=== PATIENT | female | born 1945 | race Hispanic/Latino ===

== ENCOUNTER 2017-01-21 09:33 | Inpatient (IN) | payer MEDICARE ==
[2017-01-21 09:51] VITALS: BMI 40.4
[2017-01-21] MEDS ORDERED: Sodium Chloride 0.9% 1,000 ML IV STA (10:14)
[2017-01-21] MEDS ORDERED: Morphine 2 mg/ml ISec IVP STA (10:14)
[2017-01-21 10:25] LABS: ADD MANUAL DIFF? NO
[2017-01-21 10:27] LABS: VENOUS BLOOD GAS BASE EXCESS -0.5 mmol/L (0.0-2.0)
[2017-01-21 10:32] LABS: BASO # 0.02 K/mm3 (0.0-2.0); BASO % 0.2 % (0.0-3.0); EOS % 0.3 % (1.5-5.0); GRAN # 9.48 (1.4-6.5); GRAN % 75.6 % (50.0-68.0); HEMATOCRIT 44.6 % (36.0-48.0); LYMPH # 2.1 (1.2-3.4); LYMPH % 16.4 % (22.0-35.0); MEAN CELL VOLUME 87.5 fL (80.0-105.0); MEAN CORPUSCULAR HEMOGLOBIN 30.4 pg (25.0-35.0); MEAN CORPUSCULAR HGB CONC 34.8 g/dl (31.0-37.0); MEAN PLATELET VOLUME 10.8 fl (7.0-11.0); MONO # 0.9 (0.1-0.6); MONO % 7.5 % (1.0-6.0); PLATELET COUNT 339 10^3/uL (120.0-450.0); RED CELL DISTRIBUTION WIDTH 13.1 % (11.5-14.5); WHITE BLOOD COUNT 12.5 10^3/ul (4.5-11.0)
[2017-01-21 10:37] LABS: ALB/GLOB RATIO 1.1 (1.1-1.8); ALKALINE PHOSPHATASE 69 U/L (38-133); ALT/SGPT 25 U/L (7-56); AST/SGOT 28 U/L (15-39); BLOOD UREA NITROGEN 20 mg/dL (7-21); CALCIUM 9.6 mg/dL (8.4-10.5); CARBON DIOXIDE 22 mmol/L (21-33); CHLORIDE 94 mmol/L (98-107); GFR AFRICAN-AMERICAN > 60; GLUCOSE,RANDOM 206 mg/dL (70-110); LIPASE 36 U/L (23-300); POTASSIUM 3.7 mmol/L (3.6-5.0); SODIUM 134 mmol/L (132-148); TOTAL PROTEIN 7.8 g/dL (5.8-8.3)
[2017-01-21] MEDS ORDERED: Iohexol 240 (50 ml) ONE (10:37)
[2017-01-21 10:38] LABS: INR 1.07 (0.93-1.08); PARTIAL THROMBOPLASTIN TIME 31.2 Seconds (23.7-30.8)
[2017-01-21] MEDS ORDERED: Iohexol 350 MG/100 ML VIAL ONE (10:38)
--- NOTE | 2017-01-21 11:02 | ED PDOC ---
Arrival/HPI - General Chief Complaint: Abdominal Pain Time Seen by Provider: 01/21/17 10:06 Historian: Patient - History of Present Illness Narrative History of Present Illness (Text): 01/21/17 10:10 Salima Sanchez is a 71 year old female, whose past medical history includes hypertension, diabetes, and diverticulitis, who presents to the emergency department complaining of abdominal pain and chronic back pain that radiates to her abdomen x 3 days Patient states that she was dry-heaving yesterday and felt abdominal pain. She noticed abdominal hernia would not go down and redness to her belly. Patient's last bowel movement was four days ago. Patient denies dry- heaving since, any vomiting, any fever, or any other complaint at this time. Chronic back pain has been stable she states and just hurts when she moves. No incontinence or saddle anesthesia. PMD: Dr. Pena Time/Duration: < week Symptom Onset: Gradual Symptom Course: Worsening Severity Level: Mild Activities at Onset: Light Context: Home Past Medical History - Provider Review Nursing Documentation Reviewed: Yes - Cardiac Hx Hypertension: Yes - Endocrine/Metabolic Hx Diabetes Mellitus Type 2: Yes - Musculoskeletal/Rheumatological Other/Comment: Radiculopathy - Psychiatric Hx Substance Use: No - Surgical History Hx Section: Yes Family/Social History - Physician Review Nursing Documentation Reviewed: Yes Family/Social History: No Known Family HX Smoking Status: Former Smoker Hx Alcohol Use: No Hx Substance Use: No Allergies/Home Meds Allergies/Adverse Reactions: Allergies amlodipine besylate [From [facility]] Adverse Reaction (Verified 01/21/17 09:51) ANGIOEDEMA Home Medications: Home Meds Medication Instructions Recorded Confirmed Aspirin [Ecotrin] 81 mg PO DAILY 01/21/17 01/21/17 Krill Oil [Krill Oil] 500 mg PO DAILY 01/21/17 01/21/17 Multivit-Min/Iron/Folic/Lutein 1 tab PO DAILY 01/21/17 01/21/17 [Centrum Silver Women Tablet] Simvastatin [Simvastatin] 10 mg PO DAILY 01/21/17 01/21/17 Sitagliptin Phos/Metformin HCl 1 tab PO DAILY 01/21/17 01/21/17 [Janumet 50-500 mg Tablet] Review of Systems - Physician Review All systems were reviewed & negative as marked: Yes - Review of Systems Constitutional: absent: Fevers, Night Sweats Eyes: absent: Vision Changes ENT: absent: Hearing Changes Respiratory: absent: SOB, Cough Cardiovascular: absent: Chest Pain Gastrointestinal: Abdominal Pain, Constipation, Nausea. absent: Vomiting Genitourinary Female: absent: Urine Output Changes Musculoskeletal: Back Pain Skin: absent: Rash Neurological: absent: Headache, Dizziness Endocrine: absent: Diaphoresis Hemo/Lymphatic: absent: Easy Bleeding Psychiatric: absent: Depression Physical Exam Vital Signs Reviewed: Yes Vital Signs Temp Pulse Resp BP Pulse Ox 01/21/17 09:41 98.2 F 60 18 133/67 100 Temperature: Afebrile Blood Pressure: Normal Pulse: Regular Respiratory Rate: Normal Appearance: Positive for: Well-Appearing, Non-Toxic, Comfortable Pain Distress: None Mental Status: Positive for: Alert and Oriented X 3 - Systems Exam Head: Present: Atraumatic, Normocephalic Pupils: Present: PERRL Extroacular Muscles: Present: EOMI Conjunctiva: Present: Normal Mouth: Present: Moist Mucous Membranes Neck: Present: Normal Range of Motion Respiratory/Chest: Present: Clear to Auscultation, Good Air Exchange. No: Respiratory Distress, Accessory Muscle Use Cardiovascular: Present: Regular Rate and Rhythm, Normal S1, S2. No: Murmurs Abdomen: Present: Tenderness, Normal Bowel Sounds, Guarding, Hernias (Ventral hernia that is palpable and tender), Other (Obese abdomen ). No: Distention Back: Present: Midline Tenderness (Diffuse lower-mid back tenderness) Upper Extremity: Present: Normal Inspection. No: Cyanosis, Edema Lower Extremity: Present: Normal Inspection. No: Edema Neurological: Present: GCS=15, CN II-XII Intact, Speech Normal Skin: Present: Warm. No: Normal Color (Red) Psychiatric: Present: Alert, Oriented x 3, Normal Insight, Normal Concentration Medical Decision Making ED Course and Treatment: 01/21/17 11:00 Impression: 71 year old female complaining of abdominal pain due to chronic back pain from three days ago that radiated to belly. Differential Diagnosis included but are not limited to: Abdominal pain, ventral hernia r/o obstruction r/o diverticulitis Plan: -- Abdomen and Pelvis CT w/ PO & IV Contrast -- VBG, Blood Culture -- Urinalysis -- Morphine, IV Fluids -- Reassess and disposition Progress Notes: 01/21/17 12:25 On arrival I placed a warm towel on abdominal wall. In trendelenburg I attempted to reduce her hernia with no success. She continues to complain of pain. I spoke to surgical forceps fabricator Dr. Sequeira who will come and evaluate patient. 01/21/17 12:27 Patient is having difficult drinking oral contrast because her stomach starts to ache and then she feels nauseous. At that time Zofran and Morphine were ordered. 01/21/17 13:[address] Morrell who patient requested as a surgeon. I discussed CT results with him and he will take her to the OR today. Dr. Sequeira resident also examined her. She is currently NPO. Her last meal was Monday. Dr. Pena made aware of admission. - Critical Care Critical Care Minutes: 30 minutes - Lab Interpretations Lab Results: 01/21/17 10:00 01/21/17 10:00 Lab Results 01/21/17 10:00: WBC 12.5 H D, RBC 5.10, Hgb 15.5, Hct 44.6, MCV 87.5, MCH 30.4, MCHC 34.8, RDW 13.1, Plt Count 339, MPV 10.8, Gran % 75.6 H, Lymph % (Auto) 16.4 L, Jack % (Auto) 7.5 H, Eos % (Auto) 0.3 L, Baso % (Auto) 0.2, Gran # 9.48 H, Lymph # 2.1, Jack # 0.9 H, Eos # 0.0, Baso # 0.02, PT 11.6, INR 1.07, APTT 31.2 H, pO2 53, VBG pH 7.40, VBG pCO2 39.0 L, VBG HCO3 24.2, VBG Total CO2 25.4 , VBG O2 Sat (Calc) 90.8 H, VBG Base Excess -0.5 L, VBG Potassium 4.0, Glucose 213 H, Lactate 2.0, FiO2 21.0, Sodium 131.0 L, Potassium 3.7, Chloride 95.0 L, Carbon Dioxide 22, Anion Gap 22 H, BUN 20, Creatinine 0.9, Est GFR ( Amer ) > 60, Est GFR (Non-Af Amer) > 60, Random Glucose 206 H, Calcium 9.6, Total Bilirubin 1.0, AST 28, ALT 25, Alkaline Phosphatase 69, Total Protein 7.8, Albumin 4.1, Globulin 3.7, Albumin/Globulin Ratio 1.1, Lipase 36, Venous Blood Potassium 4.0 I have reviewed the lab results: Yes - RAD Interpretation Radiology Orders: 01/21/17 10:13 ABD PELVIS PO & IV CONTRAST [CT] Stat 01/21/17 13:31 CHEST PORTABLE [RAD] Stat Accession No. : [id number] Patient Name / ID : ALBERTO GARCIA / [id number] Exam Date : 01/21/2017 12:29:56 ( Approved ) Study Comment : Sex / Age : F / 71Y Creator : INGRIS ROMERO MD Dictator : INGRIS ROMERO MD Tentering Machine Off Bearer : Service Station Operator : INGRIS ROMERO MD Approver2 : Report Date : 01/21/2017 13:19:55 My Comment : IMPRESSION: 1. Findings are concerning for incarcerated infraumbilical ventral hernia with high-grade mechanical obstruction in the distal small bowel obstruction. Small amount of free fluid in the abdomen. 2. Mild hepatomegaly and hepatic steatosis. Geriatric Care Manager: Radiologist - Medication Orders Current Medication Orders: Discontinued Medications Sodium Chloride (Sodium Chloride 0.9%) 1,000 mls @ 999 mls/hr IV .Q1H1M STA Stop: 01/21/17 11:14 Last Admin: 01/21/17 10:22 Dose: 999 MLS/HR eMAR Start Stop Document 01/21/17 10:22 EWO (Rec: 01/21/17 10:32 EWO [id number]) Intravenous Solution Start Date 01/21/17 Start Time 10:32 End Date 01/21/17 End time 11:32 Total Infusion Time 60 Iohexol (Omnipaque 240 (50 Ml)) Confirm Administered Dose 50 ml .ROUTE .STK-MED ONE Stop: 01/21/17 10:38 Iohexol (Omnipaque 350 100 Ml) Confirm Administered Dose 350 mg .ROUTE .STK-MED ONE Stop: 01/21/17 10:39 Morphine Sulfate (Morphine) 2 mg IVP STAT STA Stop: 01/21/17 10:15 Last Admin: 01/21/17 10:21 Dose: 2 MG MAR Pain Assessment Document 01/21/17 10:21 EWO (Rec: 01/21/17 10:21 [place] [id number]) Pain Reassessment Is this a pain reassessment? No Sleep Is patient sleeping during reassessment? No Presence of Pain Presence of Pain Yes Pain Scale Used Pain Scale Used Numeric Location Left, Right or Bilateral Left Pain Location Body Site Abdomen Description Description Constant Intensity of Pain at present 8 Pain Behavior Guarding IVP Administration Document 01/21/17 10:21 EWO (Rec: 01/21/17 10:21 [place] [id number]) Charges for Administration # of IVP Administrations 1 Morphine Sulfate (Morphine) 4 mg IVP STAT STA Stop: 01/21/17 12:12 Last Admin: 01/21/17 12:22 Dose: 4 MG MAR Pain Assessment Document 01/21/17 12:22 EWO (Rec: 01/21/17 12:22 [place] [id number]) Pain Reassessment Is this a pain reassessment? Yes Sleep Is patient sleeping during reassessment? No Presence of Pain Presence of Pain Yes Pain Scale Used Pain Scale Used Numeric Location Pain Location Body Site Abdomen Description Description Intermittent Intensity of Pain at present 7 IVP Administration Document 01/21/17 12:22 EWO (Rec: 01/21/17 12:22 [place] [id number]) Charges for Administration # of IVP Administrations 1 Ondansetron HCl (Zofran Inj) Confirm Administered Dose 4 mg .ROUTE .STK-MED ONE Stop: 01/21/17 12:24 - Scribe Statement The provider has reviewed the documentation as recorded by the Bin Samuels Provider Scribe Attestation: All medical record entries made by the Scribe were at my direction and personally dictated by me. I have reviewed the chart and agree that the record accurately reflects my personal performance of the history, physical exam, medical decision making, and the department course for this patient. I have also personally directed, reviewed, and agree with the discharge instructions and disposition. Disposition/Present on Arrival - Present on Arrival Any Indicators Present on Arrival: No History of DVT/PE: No History of Uncontrolled Diabetes: No Urinary Catheter: No History of Decub. Ulcer: No History Surgical Site Infection Following: None - Disposition Have Diagnosis and Disposition been Completed?: Yes Diagnosis: Small bowel obstruction, Incarcerated ventral hernia Disposition: HOSPITALIZED Disposition Time: 13:34 Patient Plan: Admission Condition: GUARDED Referrals: PCP,NO [Primary Care Provider] - Follow up with primary
[2017-01-21] MEDS ORDERED: Morphine 4 mg/ml ISec IVP STA (12:11)
--- NOTE | 2017-01-21 13:21 | CT ---
PROCEDURE: CT Abdomen and Pelvis with contrast HISTORY: abd pain with ventral hernia r/o obs r/o diverticu COMPARISON: None. TECHNIQUE: CT scan of the abdomen and pelvis was performed after intravenous administration of contrast. Oral contrast was administered. Coronal and sagittal reformatted images were obtained. Contrast dose: 100 mL Omnipaque 350 Radiation dose: Total exam DLP = 1237.92 mGy-cm. FINDINGS: LOWER THORAX: There is linear atelectasis or scarring in the lingula and bibasilar subsegmental atelectasis. LIVER: The liver is enlarged and there is diffuse low-attenuation. No gross lesion or ductal dilatation. GALLBLADDER AND BILE DUCTS: There are no calcified gallstones. . PANCREAS: Unremarkable. No gross lesion or ductal dilatation. SPLEEN: The spleen is normal in size and there is homogeneous enhancement without focal lesion. ADRENALS: Both adrenal glands are normal in size without discrete nodule. Both KIDNEYS AND URETERS: Both kidneys are normal in size and there is homogeneous enhancement. There is no hydronephrosis. There is a 3 cm simple cyst in the right lower pole. VASCULATURE: The aorta is normal in caliber. There atherosclerotic aortic iliac calcifications. No aneurysm. BOWEL: There is moderate oozing dilatation and air-fluid levels in the proximal and mid small bowel loops leading into a large fat containing infraumbilical ventral hernia. The exiting small bowel loops and the distal small bowel loops are normal in caliber. Ileocecal junction is normal. There is significant fat stranding surrounding the hernia. There is left colonic diverticulosis without CT evidence for acute diverticulitis. APPENDIX: Normal appendix. PERITONEUM: There is small amount of free fluid in the abdomen. No free intraperitoneal air. LYMPH NODES: No enlarged lymph nodes. BLADDER: Normal in appearance. REPRODUCTIVE: The uterus is normal in size for the patient's age. No adnexal masses. BONES: No acute fracture. OTHER FINDINGS: There is a small fat containing supraumbilical ventral hernia. IMPRESSION: 1. Findings are concerning for incarcerated infraumbilical ventral hernia with high-grade mechanical obstruction in the distal small bowel obstruction. Small amount of free fluid in the abdomen. 2. Mild hepatomegaly and hepatic steatosis.
--- NOTE | 2017-01-21 14:13 | RAD ---
HISTORY: preop COMPARISON: No prior. FINDINGS: LUNGS: The lungs are clear. PLEURA: No significant pleural effusion identified, no pneumothorax apparent. CARDIOVASCULAR: Normal. OSSEOUS STRUCTURES: No significant abnormalities. VISUALIZED UPPER ABDOMEN: Normal. OTHER FINDINGS: None. IMPRESSION: No active pulmonary disease.
[2017-01-21 14:17] LABS: VENOUS BLOOD GAS BASE EXCESS -0.5 mmol/L (0.0-2.0); VENOUS BLOOD PH 7.44 (7.32-7.43)
[2017-01-21 14:28] LABS: URINE BILIRUBIN NEGATIVE (NEGATIVE); URINE BLOOD NEGATIVE (NEGATIVE); URINE GLUCOSE (UA) NEGATIVE (NEGATIVE); URINE KETONE TRACE mg/dL (NEGATIVE); URINE LEUKOCYTE ESTERASE NEGATIVE Leu/uL (NEGATIVE); URINE PROTEIN NEGATIVE mg/dL (<30 mg/dL); URINE UROBILINOGEN 0.2 E.U./dL (<1 E.U./dL)
[2017-01-21] MEDS ORDERED: metroNIDAZOLE IV 500 mg/100 ml 100 ML IVPB STA (14:33)
[2017-01-21] MEDS ORDERED: Ciprofloxacin 400mg/200ml D5W 200 ML IVPB STA (14:33)
--- NOTE | 2017-01-21 14:44 | CP.PCM.CON ---
History of Present Illness - History of Present Illness History of Present Illness: SURGERY CONSULT NOTE FOR DR. ALY 71F presents to [facility] ED with abdominal pain and ventral abdominal hernia that started on Monday. Patient states she has had this hernia since 2006 and it has been reducible until Monday. She also notes that the skin above the hernia became erythematous yesterday. Patient states she is unable to tolerate regular diet has it causes her nausea and dry heaves, but denies having a vomiting episode. Patient states she has not had a bowel movement since Monday also. She usually has one everyday. Last time she had intake was 2am 01/21/17. She states it was liquids. Patient denies fevers, chills. PMD: Dr. Pena PMH: HTN, DM, Lumbar radiculopathy, Glaucoma PSH: Tonsillectomy, D&C, Plantar fasciatomy, removal of vocal cord polyps, C-sec *2 (one midline incision, one transverse incision) Social: denies tobacco, rare alcohol intake, denies illicit drugs Allergies: [facility] Review of Systems - Constitutional Constitutional: absent: Anorexia, Chills, Fever - EENT Eyes: absent: Irritation, Itchy Eyes Ears: absent: Dizziness Nose/Mouth/Throat: absent: Nasal Congestion, Sore Throat - Cardiovascular Cardiovascular: absent: Chest Pain, Dyspnea, Lightheadedness - Respiratory Respiratory: absent: Cough, Hemoptysis, Chest Congestion - Gastrointestinal Gastrointestinal: Abdominal Pain, Constipation, Cramping, Nausea. absent: Vomiting - Genitourinary Genitourinary: absent: Difficulty Urinating, Dysuria - Musculoskeletal Musculoskeletal: Tingling (down legs) - Integumentary Integumentary: Erythema (on skin over ventral hernia) - Neurological Neurological: Headaches, Radicular Pain (lumbar radicular pain) Past Patient History - Past Social History Smoking Status: Former Smoker - CARDIAC Hx Hypertension: Yes - ENDOCRINE/METABOLIC Hx Diabetes Mellitus Type 2: Yes - MUSCULOSKELETAL/RHEUMATOLOGICAL Other/Comment: Radiculopathy - PSYCHIATRIC Hx Substance Use: No - SURGICAL HISTORY Hx Section: Yes Meds Allergies/Adverse Reactions: Allergies Allergy/AdvReac Type Severity Reaction Status Date / Time amlodipine besylate AdvReac ANGIOEDEMA Verified 01/21/17 09:51 [From Norvasc] Physical Exam - Constitutional Appears: Other (uncomfortable 2/2 pain) - Head Exam Head Exam: ATRAUMATIC - Eye Exam Eye Exam: EOMI, PERRL Pupil Exam: PERRL - ENT Exam ENT Exam: Mucous Membranes Moist - Respiratory Exam Respiratory Exam: Clear to Auscultation Bilateral, NORMAL BREATHING PATTERN - Cardiovascular Exam Cardiovascular Exam: REGULAR RHYTHM, +S1, +S2 - GI/Abdominal Exam GI & Abdominal Exam: Distended, Hernia (ventral hernia, erythema of skin ), Soft , Tenderness (tenderness greatest at site of hernia). absent: Firm, Guarding, Rebound, Rigid - Extremities Exam Extremities exam: Negative for: pedal edema, tenderness - Neurological Exam Neurological exam: Alert, Oriented x3 - Psychiatric Exam Psychiatric exam: Normal Affect, Normal Mood - Skin Skin Exam: Dry, Erythema (erythema of skin overlaying the ventral hernia), Intact, Normal Color, Warm Results - Vital Signs Recent Vital Signs: Last Vital Signs Temp 99.9 F H 01/21/17 13:00 Pulse 88 01/21/17 13:00 Resp 18 01/21/17 13:00 BP 106/78 01/21/17 13:00 Pulse Ox 96 01/21/17 13:00 - Labs Result Diagrams: 01/21/17 10:00 01/21/17 10:00 Labs: Laboratory Results - last 24 hr 01/21/17 14:00 pO2 151 H VBG pH 7.44 H VBG pCO2 34.0 L VBG HCO3 23.1 VBG Total CO2 24.1 VBG O2 Sat (Calc) 99.1 H VBG Base Excess -0.5 L VBG Potassium 4.0 Sodium 132.0 Chloride 98.0 Glucose 172 H Lactate 1.5 FiO2 21.0 Venous Blood Potassium 4.0 Assessment & Plan - Assessment and Plan (Free Text) Assessment: 71F presents with abdominal pain 2/2 Incarcerated ventral/Incisional abdominal hernia Plan: - NPO, Pain control, anti-emetic, anti-pyretics, antibiotics - NG tube placed for decompression - Serial abdominal exam - Labs, Coags/EKG/CXR/TypeScreen/Consent - Patient to go OR today for Laparoscopic/poss open hernia repair Discussed with Dr. Petros Sequeira, PGY1
[2017-01-21 14:50] LABS: URINE APPEARANCE CLEAR (CLEAR); URINE COLOR YELLOW (YELLOW)
[2017-01-21] MEDS ORDERED: HYDROmorphone 1 mg/ml ISec IVP PRN (15:02)
--- NOTE | 2017-01-21 15:11 | RAD ---
HISTORY: S/P NG TUBE COMPARISON: None FINDINGS: The nasogastric tube is coiled in the stomach. LUNGS: Lung markings are accentuated. There is no focal consolidation. PLEURA: No significant pleural effusion identified, no pneumothorax apparent. CARDIOVASCULAR: The cardiomediastinal silhouette is within normal limits. OSSEOUS STRUCTURES: No significant abnormalities. VISUALIZED UPPER ABDOMEN: Normal. OTHER FINDINGS: None. IMPRESSION: The nasogastric tube is coiled in the stomach. No active pulmonary disease. Mild pulmonary venous congestion.
[2017-01-21] MEDS ORDERED: Sodium Chloride 0.9% 1,000 ML IV SCH (15:15)
[2017-01-21] MEDS ORDERED: Bupivacaine 0.5% Inj(30mL) ONE (15:52)
[2017-01-21] MEDS ORDERED: Propofol 10 mg/ml Inj (20 ML) ONE (15:54)
[2017-01-21] MEDS ORDERED: Lidocaine 1% Inj (20ml) ONE (15:54)
[2017-01-21] MEDS ORDERED: Etomidate 20 mg/10ml Inj IV ONE (15:54)
[2017-01-21] MEDS ORDERED: Rocuronium 10 mg/ml (5 ml) ONE (15:54)
[2017-01-21] MEDS ORDERED: Midazolam 2 MG/2 ML VIAL ONE (15:56)
[2017-01-21] MEDS ORDERED: Succinylcholine 200 mg/10 ml Inj IV ONE (16:19)
[2017-01-21] MEDS ORDERED: Phenylephrine 10 mg/ml Inj ONE (16:31)
--- NOTE | 2017-01-21 17:21 | HP ---
,HISTORY OF PRESENT ILLNESS: A 71-year-old female with several day' history of abdominal pain, came to [facility] and was evaluated and found to have an incarcerated ventral abdominal hernia with small bowel compromise. SOCIAL HISTORY: Nonsmoker, nondrinker, nondrug user. ALLERGY HISTORY: NORVASC. HOME MEDICATIONS: Consist of Janumet 500, multivitamin, Centrum Silver, simvastatin 10 mg, Ecotrin 81 mg and Karely Oil 500 mg. PAST MEDICAL AND SURGICAL HISTORY: Includes a D and C, 2 C-sections, surgery on the feet, vocal cord polyp surgery. She has a history of peripheral neuropathy, hypertension, Rhfdv-Niquouifz-Xksbm syndrome, peripheral neuropathy and non-insulin dependent diabetes. The patient states that she has no known coronary artery disease,sleep apnea. PHYSICAL EXAMINATION: VITAL SIGNS: She was found to have temp of 98.2, pulse of 60, blood pressure 133/67, oxygen saturation was 100% on room air, respiratory rate was 18. GENERAL: She has an NG tube in place. She is alert and oriented x 3. NECK: Supple, no JVD. HEART: Is an S1, S2. ABDOMEN: Soft, diminished bowel sounds. LUNGS: Diminished breath sounds at the bases. EXTREMITIES: Show no evidence of edema. NEUROLOGIC: She is alert and oriented x 3. LABORATORY DATA: WBC is 12.5, RBC is 5.1, hemoglobin 15.5, hematocrit 44.6, platelet count is 339. PT is 11.6 with an INR of 1.07, PTT is 31.2. Venous blood gas shows a lactate of 1.5. Chemistry shows sodium 134, potassium 3.7, chloride 94, BUN is 20, creatinine is 0.9. Random blood sugar is 206, lipase is 36. LFTs are normal. Urinalysis shows clear. Chest x-ray is reported as showing clear lungs. Abdominal CAT scan of the abdomen and pelvis shows a ventral abdominal hernia with compromise of the small bowel. I was asked to see the patient after the surgeon, Dr. Morrell, had been requested. The patient will be seen by Dr. Morrell with the intent to do surgery. The patient received Dilaudid in the Emergency Room with IV fluids and she received Cipro and Flagyl. Brittany Pena MD cc: [id number] TT: 01/21/2017 17:20:51 dn [id number]
--- NOTE | 2017-01-21 18:20 | PCM.SURG1 ---
Surgeon's Initial Post Op Note - Surgeon's Notes Surgeon: Petros Machine Heel Sprayer: Fabby Pre-Operative Diagnosis: Ventral/Incisional incarcerated hernia Operative Findings: two ventral hernia defects filled with small bowel and omentum Post-Operative Diagnosis: Ventral/Incisional incarcerated hernia Operation Performed: Laparoscopic hernia repair with mesh Specimen/Specimens Removed: omentum Estimated Blood Loss: EBL {In ML}: 30 Date of Surgery/Procedure: 01/21/17 Time of Surgery/Procedure: 16:30
[2017-01-21] MEDS ORDERED: HYDROmorphone 0.5 mg/0.5 ml ISec IVP PRN (18:23)
[2017-01-21] MEDS ORDERED: Lactated Ringer's 1,000 ML IV SCH (18:30)
--- NOTE | 2017-01-21 19:21 | CON ---
DATE: 01/21/2017 The patient is a 71-year-old female who has a past medical history of ventral abdominal hernia which she has had for years, but had increasing abdominal pain days leading up to coming in today, nausea, vomiting, and had a CT scan done that showed incarcerated ventral abdominal hernia. She went for [facility] surgery by Dr. Morrell, and now seen postoperatively with no acute complications. From [facility] with anesthesia, the patient's surgery went well. Estimated blood loss less than 500 mL. No co mplications were found. Three incision ports have healed at this time. The patient was extubated ea sily without any complications. PAST MEDICAL HISTORY: Hypertension, diabetes, obstructive sleep apnea. Unclear if obstructive lung disease. Peripheral neuropathy, history of Jplnj-Vdqxcfzpl-Eelba syndrome, peripheral neuropathy. PAST SURGICAL HISTORY: Vocal cord polyp, 2 C-sections, and today's surgery. ALLERGY HISTORY: NORVASC. SOCIAL HISTORY: Was a 77-rwzi-hint smoker; quit in 2008. No alcohol, no IV drug abuse. REVIEW OF SYSTEMS: Pertinent positives: The patient complaining of abdominal pain, dry mouth. All other review of systems are negative. LABORATORY RESULTS PREOPERATIVELY: White blood cell count 12.5, hemoglobin 15, platelet count of 339 . Sodium 134, potassium 2.7, chloride 94, bicarb 22, BUN 20, creatinine 0.9. VBG: pH 7.44, INR 1.07 . PHYSICAL EXAMINATION: VITAL SIGNS: Temp 98.2, heart rate 86, blood pressure 106/78, respiratory rate is 18, and 96% on yari m air. HEENT: The pupils are equal, round, and reactive to light. Extraocular eye movements are intact. M oist mucous membranes, Mallampati 4. NECK: No JVD. LUNGS: Clear to auscultation bilaterally without any rhonchi, rales, or wheezes. CARDIOVASCULAR: S1, S2 is heard without any heaves, murmurs, or thrills. ABDOMEN: Obese, soft, tender in the area of surgery. Three surgical incision reports are closed. M ild erythema is noted. Ventral hernia is still present. GENITOURINARY: Mora is in place. EXTREMITIES: Showed no pedal edema. SKIN: Shows no rashes. NEUROLOGICALLY: The patient is alert and oriented x 3. ASSESSMENT AND PLAN: The patient is a 71-year-old female status post emergent ventral hernia repair due to incarcerated small bowel. POSTOPERATIVE CARE: At this time the patient will have pain control with Dilaudid p.r.n. The patien t started on empiric antibiotics with Flagyl. Followup surgical recommendations. Keep n.p.o. NG tu be to suction. The patient should be continued on mild hydration with D5 normal saline at 100-150 mL per hour. For diabetes, the patient will be placed on insulin sliding scale. Hold p.o. and hypoglycemics. Hypertension. The patient is currently normotensive. Would hold off on any antihypertensives at thi s time. Followup labs. Monitor electrolytes, DVT prophylaxis, heparin subQ. TOTAL CRITICAL CARE TIME: 55 minutes. Meka Colmenares M.D. cc: [id number] TT: 01/21/2017 19:21:08 Confirmation # [id number] Dictation # [id number]
[2017-01-21] MEDS: Dextrose 5%/0.9% NS 1,000 ML IV SCH (19:51)
[2017-01-21] MEDS ORDERED: HYDROmorphone 2 mg/ml ISec IVP PRN (20:59)
[2017-01-21] MEDS: HYDROmorphone 1 mg/ml ISec IVP PRN (21:26)
[2017-01-21] MEDS: metroNIDAZOLE IV 500 mg/100 ml 100 ML IVPB SCH (21:27)
[2017-01-21] MEDS: Insulin Lispro (humaLOG) MEDIUM Coverage SC SCH (21:41)
[2017-01-21] MEDS ORDERED: Ciprofloxacin 400mg/200ml D5W 200 ML IVPB SCH (22:00)
[2017-01-22] MEDS: Dextrose 5%/0.9% NS 1,000 ML IV SCH ×2 (01:40→14:03)
[2017-01-22 05:04] LABS: ADD MANUAL DIFF? NO
[2017-01-22] MEDS: metroNIDAZOLE IV 500 mg/100 ml 100 ML IVPB SCH (05:08)
[2017-01-22 05:25] LABS: ALKALINE PHOSPHATASE 52 U/L (38-133); ALT/SGPT 25 U/L (7-56); AST/SGOT 31 U/L (15-39); BASO # 0.01 K/mm3 (0.0-2.0); BASO % 0.1 % (0.0-3.0); BILIRUBIN,TOTAL 0.7 mg/dL (0.2-1.3); BLOOD UREA NITROGEN 24 mg/dL (7-21); CALCIUM 8.4 mg/dL (8.4-10.5); CARBON DIOXIDE 24 mmol/L (21-33); CHLORIDE 98 mmol/L (98-107); EOS % 0.5 % (1.5-5.0); GFR AFRICAN-AMERICAN > 60; GLUCOSE,RANDOM 255 mg/dL (70-110); GRAN # 5.78 (1.4-6.5); GRAN % 72.7 % (50.0-68.0); HEMATOCRIT 38.6 % (36.0-48.0); LYMPH # 1.5 (1.2-3.4); LYMPH % 18.4 % (22.0-35.0); MEAN CELL VOLUME 87.1 fL (80.0-105.0); MEAN CORPUSCULAR HEMOGLOBIN 29.3 pg (25.0-35.0); MEAN CORPUSCULAR HGB CONC 33.7 g/dl (31.0-37.0); MEAN PLATELET VOLUME 10.6 fl (7.0-11.0); MONO # 0.7 (0.1-0.6); MONO % 8.3 % (1.0-6.0); PLATELET COUNT 308 10^3/uL (120.0-450.0); POTASSIUM 3.5 mmol/L (3.6-5.0); RED CELL DISTRIBUTION WIDTH 13.4 % (11.5-14.5); SODIUM 134 mmol/L (132-148); TOTAL PROTEIN 6.4 g/dL (5.8-8.3)
--- NOTE | 2017-01-22 06:43 | CP.PCM.PN ---
Subjective - Date & Time of Evaluation Date of Evaluation: 01/22/17 Time of Evaluation: 06:40 - Subjective Subjective: SURGERY NOTE FOR DR. ALY 71F seen and examined at bedside. Patient states abdominal pain is improved and controlled. Denies nausea, vomiting, she is tolerating diet. Objective - Vital Signs/Intake and Output Vital Signs (last 24 hours): Temp Pulse Resp BP Pulse Ox 98.4 F 75 16 179/69 H 95 01/22/17 04:00 01/22/17 06:00 01/22/17 06:00 01/22/17 06:00 01/22/17 06:00 Intake and Output: 01/21/17 01/22/17 18:59 06:59 Intake Total 2000 Output Total 450 Balance 1550 - Medications Medications: Current Medications Acetaminophen (Tylenol 325mg Tab) 650 mg PO Q6H PRN PRN Reason: Fever >100.4 F Heparin Sodium (Porcine) (Heparin) 5,[address] PRN Reason: Protocol Hydralazine HCl (Apresoline) 10 mg IVP Q6 PRN PRN Reason: Systolic Blood Pressure Hydromorphone HCl (Dilaudid) 1 mg IVP Q3 PRN PRN Reason: Pain, moderate (4-7) Last Admin: 01/21/17 21:26 Dose: 1 mg Hydromorphone HCl (Dilaudid) 2 mg IVP Q3H PRN PRN Reason: Pain, severe (8-10) Last Admin: 01/22/17 05:07 Dose: 2 mg Metronidazole (Flagyl) 100 mls @ 100 mls/hr IVPB Q8 LANE PRN Reason: Protocol Last Admin: 01/22/17 05:08 Dose: 100 mls/hr Dextrose/Sodium Chloride (Dextrose 5%/0.9% Ns 1000 Ml) 1,000 mls @ 150 mls/hr IV .Q6H40M [facility] Last Admin: 01/22/17 01:40 Dose: 150 mls/hr Potassium Chloride (Potassium Chloride 20 Meq/100 Ml) 100 mls @ 50 mls/hr IVPB Q2H [facility] Stop: 01/22/17 10:14 Insulin Human Lispro (Humalog Med) [address] PRN Reason: Protocol Last Admin: 01/21/17 21:41 Dose: Not Given Ondansetron HCl (Zofran Inj) 4 mg IVP Q4 PRN PRN Reason: Nausea/Vomiting - Labs Labs: 01/22/17 05:00 01/22/17 05:00 PT 11.6 Seconds (9.9-11.8) 01/21/17 10:00 INR 1.07 (0.93-1.08) 01/21/17 10:00 APTT 31.2 Seconds (23.7-30.8) H 01/21/17 10:00 - Constitutional Appears: Non-toxic, No Acute Distress - Head Exam Head Exam: ATRAUMATIC - Respiratory Exam Respiratory Exam: Clear to Ausculation Bilateral, NORMAL BREATHING PATTERN - Cardiovascular Exam Cardiovascular Exam: REGULAR RHYTHM, +S1, +S2 - GI/Abdominal Exam GI & Abdominal Exam: Soft, Tenderness. absent: Distended, Firm, Guarding, Rigid , Rebound Additional comments: incisions are clean dry intact, skin erythema on site of hernia is resolving - Neurological Exam Neurological Exam: Alert, Awake - Skin Skin Exam: Dry, Intact, Normal Color, Warm Assessment and Plan - Assessment and Plan (Free Text) Assessment: 71F s/p laparoscopic ventral/incisional hernia repair POD1 Plan: - monitor vitals/labs - await bowel function - encourage ambulation/Incentive spirometer/ knee high hose stocking - NPO till noon and monitor NG tube output from now to noon Further recs discuss with Dr. Petros Sequeira, PGY1
--- NOTE | 2017-01-22 09:31 | CP.PCM.PN ---
Subjective - Date & Time of Evaluation Date of Evaluation: 01/22/17 Time of Evaluation: 08:00 - Subjective Subjective: No acute events overnight Pt refused CPAP Pain controlled NGT to suction remains BP WNL Objective - Vital Signs/Intake and Output Vital Signs (last 24 hours): Temp Pulse Resp BP Pulse Ox 98.4 F 75 16 179/69 H 95 01/22/17 04:00 01/22/17 06:00 01/22/17 06:00 01/22/17 06:00 01/22/17 06:00 Intake and Output: 01/22/17 01/22/17 06:59 18:59 Intake Total 2000 Output Total 450 Balance 1550 - Medications Medications: Current Medications Acetaminophen (Tylenol 325mg Tab) 650 mg PO Q6H PRN PRN Reason: Fever >100.4 F Heparin Sodium (Porcine) (Heparin) 5,[address] PRN Reason: Protocol Hydralazine HCl (Apresoline) 10 mg IVP Q6 PRN PRN Reason: Systolic Blood Pressure Hydromorphone HCl (Dilaudid) 1 mg IVP Q3 PRN PRN Reason: Pain, moderate (4-7) Last Admin: 01/21/17 21:26 Dose: 1 mg Hydromorphone HCl (Dilaudid) 2 mg IVP Q3H PRN PRN Reason: Pain, severe (8-10) Last Admin: 01/22/17 05:07 Dose: 2 mg Potassium Chloride (Potassium Chloride 20 Meq/100 Ml) 100 mls @ 50 mls/hr IVPB Q2H LANE Stop: 01/22/17 10:14 Potassium Chloride/Dextrose/Sod Cl (Potassium Chl 40 Meq In D5-1/2ns) 1,000 mls @ 125 mls/hr IV .Q8H LANE Piperacillin Sod/Tazobactam Sod (Zosyn 3.375 In Ns 100ml) 100 mls @ 200 mls/hr IVPB Q6 LANE PRN Reason: Protocol Stop: 01/31/17 12:01 Insulin Human Lispro (Humalog Med) [address] PRN Reason: Protocol Last Admin: 01/21/17 21:41 Dose: Not Given Ondansetron HCl (Zofran Inj) 4 mg IVP Q4 PRN PRN Reason: Nausea/Vomiting - Labs Labs: 01/22/17 05:00 01/22/17 05:00 PT 11.6 Seconds (9.9-11.8) 01/21/17 10:00 INR 1.07 (0.93-1.08) 01/21/17 10:00 APTT 31.2 Seconds (23.7-30.8) H 01/21/17 10:00 - Constitutional Appears: Well, No Acute Distress - Head Exam Head Exam: ATRAUMATIC - Eye Exam Eye Exam: EOMI, Normal appearance Pupil Exam: PERRL - ENT Exam ENT Exam: Mucous Membranes Moist - Neck Exam Neck Exam: Full ROM - Respiratory Exam Respiratory Exam: Clear to Ausculation Bilateral, NORMAL BREATHING PATTERN - Cardiovascular Exam Cardiovascular Exam: REGULAR RHYTHM - GI/Abdominal Exam GI & Abdominal Exam: Soft, Tenderness, Hypoactive Bowel Sounds - Exam External exam: NORMAL EXTERNAL EXAM - Extremities Exam Extremities Exam: Full ROM, Normal Inspection - Back Exam Back Exam: NORMAL INSPECTION - Neurological Exam Neurological Exam: Awake, CN II-XII Intact, Oriented x3 Assessment and Plan - Assessment and Plan (Free Text) Assessment: 71 y/o F s/p emergent Ventral hernia repair Post -op overnight in the ICU . Pain controll, NGT to suction with [id number] Labs reviewed, Electrolytes repleted. HGB stable. On empiric abx per surgery. Falgyl continued. No fevers or acute change in clinical status HTn- Can start Hydralazine and or Lopressor if need to keep SBP<180 . JEN- CPAP orders in but patient refused. Need PT/OT NPO per surgeons request. NGT to suction. No flatus yet. transfer to Med-surg floor per Surgery team. cc time 45 min
[2017-01-22] MEDS: Insulin Lispro (humaLOG) MEDIUM Coverage SC SCH ×4 (09:41→21:45)
[2017-01-22] MEDS: Potassium Chl 40 mEq in D5-1/2 1,000 ML IV SCH ×2 (09:42→18:30)
[2017-01-22] MEDS: Potassium Chloride 20 mEq 100 ML IVPB SCH ×2 (09:51→14:07)
--- NOTE | 2017-01-22 10:19 | PN ---
DATE: 01/22/2017 This is postop day #1 ventral abdominal hernia with incarcerated small bowel. VITAL SIGNS: Temperature is 98.4. Her blood pressure is 170/78. Pulse is 76. Respiratory rate is 14. Oxygen saturation is 95% on nasal cannula 2 liters. LABORATORY DATA: Show a WBC of 8, RBC of 4.4, hemoglobin 13, hematocrit 38.6, platelet count 308. C hemistry shows a sodium 134, potassium 3.5, chloride 98, CO2 of 24. The BUN is 24. Creatinine is 0. 8. Random blood sugar was 255. LFTs are normal. The patient is currently on Zosyn by infectious disease. She is on a sliding insulin scale for her n on-insulin dependent diabetes. She is on DVT prophylaxis with heparin subQ 5000 units q. 12. She is on pain management with Dilaudid, and she is going to get potassium replacement. She is on Zofran p .r.n. for nausea. She has an NG tube in place. PHYSICAL EXAMINATION NECK: Supple. LUNGS: Clear. HEART: Has an S1, S2 rhythm. ABDOMEN: Soft. EXTREMITIES: Show no evidence of edema. NEUROLOGIC: She is alert and oriented x 3. PLAN: Continue current level of medical care. The patient will continue to be followed by surgery a nd infectious disease. She has a past medical history of sleep apnea, peripheral neuropathy, non-ins ulin dependent diabetes, degenerative arthritis with disk disease. Brittany Pena MD cc: [id number] TT: 01/22/2017 10:18:23 Confirmation # [id number] Dictation # [id number]
[2017-01-22] MEDS: HYDROmorphone 1 mg/ml ISec IVP PRN (12:15)
--- NOTE | 2017-01-22 15:50 | CON ---
DATE: 01/22/2017 The patient is in bed and was seen earlier today, 129, ICU bed 4. CHIEF COMPLAINT: Abdominal pain x 1 day. HISTORY OF PRESENT ILLNESS: A 71-year-old. The patient seen earlier in the unit. The patient is a 71-year-old female with hypertension, diabetes, history of diverticulitis, history of radiculopathy, chronic back pain who was admitted yesterday through the Emergency Room with a diagnosis of incarcera chino ventral hernia, small-bowel obstruction, was taken to the OR on an emergent basis. Had laparosco pic hernia repair with mesh placement and a small-bowel obstruction surgery, now in the intensive car e unit and infectious disease consultation requested for antibiotic choice. The patient states she d id not have any fevers, no chills, no chest pain, just the abdominal pain, no dysuria or frequency. PAST MEDICAL HISTORY: Significant for diverticulitis, diabetes mellitus, hypertension, chronic back pain, radiculopathy. PAST SURGICAL HISTORY: Significant for . ALLERGIES: AMLODIPINE. SOCIAL HISTORY: The patient is retired. 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 MEDICATIONS: At home include Ecotrin and statin and metformin. GENERAL: The patient is in bed, awake and alert, answering questions. VITAL SIGNS: Temperature of 98, T-max is 99.9, blood pressure is 150/60, respiratory rate of 19, hea rt rate of 80. HEENT: Has an NG tube in. NECK: Supple. LUNGS: Decreased breath sounds. HEART: Normal S1, S2. ABDOMEN: Mild tenderness. No rebound, no guarding, no masses. LABORATORY EXAMINATION: Reveals a white count of 12,500, hemoglobin of 15, platelets of 339. Coagul ation is noted. Blood gases are reviewed. Chemistries reveal the BUN of 20, creatinine of 0.9, rand om glucose is 206. Urinalysis is noted to be negative. Microbiology reveals the blood cultures are negative. The patient's CAT scan is reviewed. The OR report is reviewed. ASSESSMENT AND PLAN: This is a 71-year-old female with hypertension, diabetes mellitus, diverticulit is, chronic back pain, radiculopathy, history of admitted with leukocytosis, abdominal pain and found to have small-bowel obstruction with incarcerated hernia, status post laparoscopic hernia repair with mesh with leukocytosis resolving, now on Zosyn pending cortes final culture and clinical res ponse. We will follow closely with you. Case discussed with Dr. Pnea at length. Camron Simons MD cc: [phone] TT: 01/22/2017 15:49:52 Confirmation # [id number] Dictation # [id number] an
[2017-01-22] MEDS: Piperacillin/Tazobact 3.375 gm 100 ML IVPB SCH ×3 (16:01→23:43)
[2017-01-22] MEDS ORDERED: Oxycodone/Acetaminophen 5/325 mg Tab PO PRN (17:44)
--- NOTE | 2017-01-22 18:30 | CARD ---
APPROVED REPORT EKG Measurement Heart [id number] <Conclusion> Normal sinus rhythm Left bundle branch block Abnormal ECG
[2017-01-22] MEDS: Morphine 2 mg/ml ISec IVP PRN (22:10)
[2017-01-23] MEDS: Potassium Chl 40 mEq in D5-1/2 1,000 ML IV SCH ×3 (02:47→15:59)
[2017-01-23] MEDS: Piperacillin/Tazobact 3.375 gm 100 ML IVPB SCH ×4 (05:42→23:13)
[2017-01-23 07:09] LABS: ADD MANUAL DIFF? NO
[2017-01-23 07:19] LABS: BASO # 0.03 K/mm3 (0.0-2.0); BASO % 0.4 % (0.0-3.0); EOS # 0.2 (0.0-0.7); EOS % 2.2 % (1.5-5.0); GRAN # 5.48 (1.4-6.5); GRAN % 66.5 % (50.0-68.0); HEMATOCRIT 38.9 % (36.0-48.0); LYMPH # 1.9 (1.2-3.4); LYMPH % 22.9 % (22.0-35.0); MEAN CELL VOLUME 88.8 fL (80.0-105.0); MEAN CORPUSCULAR HEMOGLOBIN 29.2 pg (25.0-35.0); MEAN CORPUSCULAR HGB CONC 32.9 g/dl (31.0-37.0); MEAN PLATELET VOLUME 10.6 fl (7.0-11.0); MONO # 0.7 (0.1-0.6); PLATELET COUNT 340 10^3/uL (120.0-450.0); RED CELL DISTRIBUTION WIDTH 13.5 % (11.5-14.5); WHITE BLOOD COUNT 8.2 10^3/ul (4.5-11.0)
[2017-01-23] MEDS: Insulin Lispro (humaLOG) MEDIUM Coverage SC SCH ×5 (07:58→21:57)
[2017-01-23 08:24] LABS: BLOOD UREA NITROGEN 15 mg/dL (7-21); CALCIUM 8.4 mg/dL (8.4-10.5); CARBON DIOXIDE 26 mmol/L (21-33); CHLORIDE 104 mmol/L (95-110); GFR AFRICAN-AMERICAN > 60; GLUCOSE,RANDOM 199 mg/dL (70-110); MAGNESIUM 2.1 mg/dL (1.7-2.2); POTASSIUM 4.1 mmol/L (3.6-5.0); SODIUM 137 mmol/L (132-148)
--- NOTE | 2017-01-23 09:38 | PN ---
DATE: 01/23/2017 A 71-year-old female, postop ventral abdominal wall hernia with incarceration of small bowel, status post surgery. Nursing staff relates that there were no particular problems during the night. PHYSICAL EXAMINATION: VITAL SIGNS: Her temperature is reported at 98.4, her blood pressure is 169/67, pulse is 83 and it i s regular. Her oxygen saturation is 91% on 2 liters nasal cannula. GENERAL: She is alert and oriented x 3. NECK: Supple. LUNGS: Clear. HEART: Has an S1, S2 rhythm. ABDOMEN: Soft with positive bowel sounds but they are slightly diminished. EXTREMITIES: Show no evidence of edema. LABORATORY DATA: Shows normal electrolytes. Her BUN is 15, creatinine is 0.7. Blood sugar is 199. CBC: WBC is 8.2, RBC is 4.38, hemoglobin is 12.8, hematocrit is 38.9, platelet count is 340. ASSESSMENT AND PLAN: Currently, the patient is on intravenous Zosyn by infectious disease. She has been placed on a clear liquid diet by surgery who is following the patient postoperatively. She is o n intravenous fluids and pain management. She is on subcutaneous heparin for deep venous thrombosis prophylaxis. Continue current level of care. She has a history of sleep apnea. Will get a consult with Dr. Portillo regarding her sleep apnea equipment and settings. Brittany Pena MD cc: [phone] TT: 01/23/2017 09:37:09 Confirmation # [id number] Dictation # [id number] mn
[2017-01-23] MEDS: Morphine 2 mg/ml ISec IVP PRN (10:36)
[2017-01-23 12:34] VITALS: RESP 20
--- NOTE | 2017-01-23 14:01 | CP.PCM.PN ---
Subjective - Date & Time of Evaluation Date of Evaluation: 01/23/17 Time of Evaluation: 09:15 - Subjective Subjective: Comfortable on a chair, afebrile overnight, no nausea, able to tolerate clear liquid diet, not in distress. Objective - Vital Signs/Intake and Output Vital Signs (last 24 hours): Temp Pulse Resp BP Pulse Ox 98.3 F 77 20 167/93 H 91 L 01/23/17 12:00 01/23/17 12:00 01/23/17 12:00 01/23/17 12:00 01/23/17 06:00 Intake and Output: 01/23/17 01/23/17 06:59 18:59 Intake Total 2200 Output Total 700 Balance 1500 - Medications Medications: Current Medications Acetaminophen (Tylenol 325mg Tab) 650 mg PO Q6H PRN PRN Reason: Fever >100.4 F Docusate Sodium (Colace) 100 mg PO TID [facility] Last Admin: 01/23/17 09:08 Dose: 100 mg Heparin Sodium (Porcine) (Heparin) 5,[address] PRN Reason: Protocol Last Admin: 01/23/17 09:08 Dose: 5,000 units Hydralazine HCl (Apresoline) 10 mg IVP Q6 PRN PRN Reason: Systolic Blood Pressure Piperacillin Sod/Tazobactam Sod (Zosyn 3.375 In Ns 100ml) 100 mls @ 200 mls/hr IVPB Q6 LANE PRN Reason: Protocol Stop: 01/31/17 12:01 Last Admin: 01/23/17 13:09 Dose: 200 mls/hr Potassium Chloride/Dextrose/Sod Cl (Potassium Chl 40 Meq In D5-1/2ns) 1,000 mls @ 50 mls/hr IV .Q20H [facility] Last Admin: 01/23/17 07:10 Dose: Not Given Insulin Human Lispro (Humalog Med) [address] PRN Reason: Protocol Last Admin: 01/23/17 11:47 Dose: 1 units Morphine Sulfate (Morphine) 2 mg IVP Q4H PRN PRN Reason: Pain, moderate (4-7) Last Admin: 01/23/17 10:36 Dose: 2 mg Ondansetron HCl (Zofran Inj) 4 mg IVP Q4 PRN PRN Reason: Nausea/Vomiting - Labs Labs: 01/23/17 06:45 01/23/17 06:45 PT 11.6 Seconds (9.9-11.8) 01/21/17 10:00 INR 1.07 (0.93-1.08) 01/21/17 10:00 APTT 31.2 Seconds (23.7-30.8) H 01/21/17 10:00 - Constitutional Appears: Non-toxic, No Acute Distress - Head Exam Head Exam: NORMAL INSPECTION - ENT Exam ENT Exam: Mucous Membranes Moist - Neck Exam Neck Exam: absent: Lymphadenopathy, Meningismus - Cardiovascular Exam Cardiovascular Exam: +S1, +S2 - GI/Abdominal Exam GI & Abdominal Exam: Soft. absent: Tenderness Assessment and Plan - Assessment and Plan (Free Text) Plan: Assessment Leukocytosis probably secondary to small bowel obstruction from incarcerated abdominal wall ventral hernia S/P repair POD #2; leukocytosis has now resolved; no evidence of sepsis noted S/P Caesarian section chronic back pain with radiculopathy HTN DM Morbid obesity with BMI 40 history of diverticulitis Plan Continue Zosyn (day 2); once the patient is on full diet, we may d/c antibiotics Will continue to monitor clinically
--- NOTE | 2017-01-23 16:12 | CP.PCM.PN ---
Subjective - Date & Time of Evaluation Date of Evaluation: 01/23/17 Time of Evaluation: 07:00 - Subjective Subjective: SURGERY NOTE FOR DR. ALY 71F seen and examined at bedside. Patient complains of incisional pain, denies N /V/F/C. Admits to flatus, but denies bowel movements. Tolerating clears. Objective - Vital Signs/Intake and Output Vital Signs (last 24 hours): Temp Pulse Resp BP Pulse Ox 98.3 F 93 H 20 167/93 H 91 L 01/23/17 12:00 01/23/17 14:00 01/23/17 12:00 01/23/17 12:00 01/23/17 06:00 - Medications Medications: Current Medications Acetaminophen (Tylenol 325mg Tab) 650 mg PO Q6H PRN PRN Reason: Fever >100.4 F Docusate Sodium (Colace) 100 mg PO TID [facility] Last Admin: 01/23/17 09:08 Dose: 100 mg Heparin Sodium (Porcine) (Heparin) 5,[address] PRN Reason: Protocol Last Admin: 01/23/17 09:08 Dose: 5,000 units Hydralazine HCl (Apresoline) 10 mg IVP Q6 PRN PRN Reason: Systolic Blood Pressure Piperacillin Sod/Tazobactam Sod (Zosyn 3.375 In Ns 100ml) 100 mls @ 200 mls/hr IVPB Q6 LANE PRN Reason: Protocol Stop: 01/31/17 12:01 Last Admin: 01/23/17 13:09 Dose: 200 mls/hr Potassium Chloride/Dextrose/Sod Cl (Potassium Chl 40 Meq In D5-1/2ns) 1,000 mls @ 50 mls/hr IV .Q20H [facility] Last Admin: 01/23/17 15:59 Dose: 50 mls/hr Insulin Human Lispro (Humalog Med) [address] PRN Reason: Protocol Last Admin: 01/23/17 11:47 Dose: 1 units Morphine Sulfate (Morphine) 2 mg IVP Q4H PRN PRN Reason: Pain, moderate (4-7) Last Admin: 01/23/17 10:36 Dose: 2 mg Ondansetron HCl (Zofran Inj) 4 mg IVP Q4 PRN PRN Reason: Nausea/Vomiting - Labs Labs: PT 11.6 Seconds (9.9-11.8) 01/21/17 10:00 INR 1.07 (0.93-1.08) 01/21/17 10:00 APTT 31.2 Seconds (23.7-30.8) H 01/21/17 10:00 - Constitutional Appears: Non-toxic, No Acute Distress - Head Exam Head Exam: ATRAUMATIC - Respiratory Exam Respiratory Exam: Clear to Ausculation Bilateral, NORMAL BREATHING PATTERN - Cardiovascular Exam Cardiovascular Exam: REGULAR RHYTHM, +S1, +S2 - GI/Abdominal Exam GI & Abdominal Exam: Soft, Tenderness (around incisions, ). absent: Distended, Firm, Guarding, Rigid, Rebound Additional comments: incisions are CDI. - Neurological Exam Neurological Exam: Alert, Awake - Psychiatric Exam Psychiatric exam: Normal Affect, Normal Mood - Skin Skin Exam: Dry, Intact, Normal Color, Warm Assessment and Plan - Assessment and Plan (Free Text) Assessment: 71F s/p laparoscopic ventral/incisional hernia repair POD2 Plan: - monitor vitals/labs - await bowel function - encourage ambulation/Incentive spirometer/ knee high hose stocking - ADAT Further recs discuss with Dr. Petros Sequeira, PGY1
[2017-01-23] MEDS: Arformoterol 15 mcg/2 ml Inh Sol IH SCH (19:48)
[2017-01-23] MEDS: Budesonide 0.5 mg/2 ml Inhal Susp UD IH SCH (19:49)
[2017-01-24] MEDS: Piperacillin/Tazobact 3.375 gm 100 ML IVPB SCH (05:08)
[2017-01-24] MEDS: Potassium Chl 40 mEq in D5-1/2 1,000 ML IV SCH (05:08)
[2017-01-24 05:36] VITALS: O2SAT 95
--- NOTE | 2017-01-24 06:11 | CON ---
DATE: 01/23/2017 REFERRING PHYSICIAN: Dr. Pena. REASON FOR CONSULT: Obstructive sleep apnea syndrome, status post ventral hernia repair. HISTORY OF PRESENT ILLNESS: This is a 71-year-old obese female with past medical history significant for diabetes, hypertension, obstructive sleep apnea syndrome, chronic obstructive lung disease, hist ory of peripheral neuropathy, Keujh-Shqlrapnb-Bjprw syndrome, admitted to the hospital with abdominal pain, found to have incarcerated hernia and underwent surgery. Presently on the floor. Out of bed to chair. Has some abdominal pain. She has a known sleep apnea syndrome, compliant with the CPAP. Since in the hospital, does not have a CPAP. Admitted to have loud snoring, daytime sleepy and tired . Mild abdominal discomfort. No dysuria. No leg pain or leg swelling. PAST MEDICAL HISTORY: Hypertension, diabetes, obstructive lung disease, obstructive sleep apnea synd lynsey, history of Cbrmh-Wdqtbyvkl-Rhekn syndrome, peripheral neuropathy, obesity. ALLERGIES: NORVASC. SOCIAL HISTORY: Stopped smoking many years ago. Denied any alcohol use. MEDICATIONS: She is on hydralazine which is 10 mg q. 6 hours p.r.n., Colace 100 mg 3 times a day, he kyle 5000 units subQ q. 12 hours, insulin coverage, morphine 2 mg IV q. 4 hours p.r.n., getting IV f luids at 50 mL per hour with potassium supplement, Tylenol p.r.n., Zofran p.r.n., Zosyn 3.375 grams q . 6 hours. REVIEW OF SYSTEMS: No headache, no rhinitis. Gets short of breath with exertion. No chest pain, no nausea, no vomiting, no diarrhea. Has abdominal discomfort. No dysuria. No leg pain or leg swelli ng. PHYSICAL EXAMINATION: GENERAL: Sitting in a reclining chair in no acute distress. VITAL SIGNS: Temp is 98, heart rate is 93, respiratory rate is 20, blood pressure 167/93, pulse ox 9 1% on 2 liters nasal cannula. HEENT: Moist mucous membrane. Crowded airway. Mallampati score is 4. NECK: Supple. No JVD. LUNGS: Have a prolonged expiratory phase with a few rhonchi at the bases. HEART: S1 and S2. ABDOMEN: Obese, soft, mild tenderness. EXTREMITIES: There is no edema. NEUROLOGIC: Awake, alert, follows simple commands. LABORATORY DATA: Shows hemoglobin 12.8, hematocrit 38.9, WBC 8.2, platelet is 340. Had an ABG done 2 days ago which is VBG: PH 7.44, pCO2 of 34, O2 151. Sodium 137, potassium 4.1, chloride 104, bica rbonate 26, BUN 15, creatinine 0.7, glucose 199, calcium 8.4, magnesium is 2.1. Had chest x-ray done on admission which shows mild congestion. IMPRESSION AND PLAN: Status post hernia repair, history of obstructive sleep apnea syndrome, obstruc tive lung disease, hypertension, diabetes, obesity. I agree with Dr. Pena for the present manageme nt. Will suggest starting CPAP. The patient wants to use her own CPAP at home. Her daughter will b ring it tonight. Will write order for the therapist. Add inhaled bronchodilators. Deep venous thro mbosis prophylaxis. Will suggest outpatient PFT. Thank you, and will follow with you. Wil Portillo MD cc: [phone] TT: 01/24/2017 06:11:08 Confirmation # [id number] Dictation # [id number]
[2017-01-24] MEDS: Arformoterol 15 mcg/2 ml Inh Sol IH SCH (07:40)
[2017-01-24] MEDS: Budesonide 0.5 mg/2 ml Inhal Susp UD IH SCH (07:40)
[2017-01-24] MEDS: Insulin Lispro (humaLOG) MEDIUM Coverage SC SCH ×4 (07:43→17:08)
[2017-01-24 12:00] VITALS: BP 165/84; PULSE 82; TEMP 98.2
--- NOTE | 2017-01-24 13:13 | CP.PCM.PN ---
Subjective - Date & Time of Evaluation Date of Evaluation: 01/24/17 Time of Evaluation: 07:30 - Subjective Subjective: SURGERY NOTE FOR DR. ALY 71F seen and examined at bedside. KAMILA. Patient is tolerating diet, denies nausea, vomiting, admits to bowel movement. Objective - Vital Signs/Intake and Output Vital Signs (last 24 hours): Temp Pulse Resp BP Pulse Ox 98.2 F 82 20 165/84 H 95 01/24/17 11:58 01/24/17 11:58 01/24/17 11:58 01/24/17 11:58 01/24/17 05:35 Intake and Output: 01/24/17 01/24/17 06:59 18:59 Intake Total 1200 Balance 1200 - Medications Medications: Current Medications Acetaminophen (Tylenol 325mg Tab) 650 mg PO Q6H PRN PRN Reason: Fever >100.4 F Arformoterol Tartrate (Brovana) 15 mcg IH [id number] [facility] Last Admin: 01/24/17 07:40 Dose: Not Given Budesonide (Pulmicort Respules) 0.5 mg IH [id number] [facility] Last Admin: 01/24/17 07:40 Dose: Not Given Docusate Sodium (Colace) 100 mg PO TID [facility] Last Admin: 01/24/17 09:43 Dose: Not Given Heparin Sodium (Porcine) (Heparin) 5,[address] PRN Reason: Protocol Last Admin: 01/24/17 09:41 Dose: 5,000 units Hydralazine HCl (Apresoline) 10 mg IVP Q6 PRN PRN Reason: Systolic Blood Pressure Last Admin: 01/24/17 00:41 Dose: 10 mg Ibuprofen (Motrin Tab) 600 mg PO Q6H PRN PRN Reason: Pain, moderate (4-7) Insulin Human Lispro (Humalog Med) [address] PRN Reason: Protocol Last Admin: 01/24/17 12:06 Dose: 1 units Morphine Sulfate (Morphine) 2 mg IVP Q4H PRN PRN Reason: Pain, moderate (4-7) Last Admin: 01/23/17 10:36 Dose: 2 mg Ondansetron HCl (Zofran Inj) 4 mg IVP Q4 PRN PRN Reason: Nausea/Vomiting - Labs Labs: 01/23/17 06:45 01/23/17 06:45 PT 11.6 Seconds (9.9-11.8) 01/21/17 10:00 INR 1.07 (0.93-1.08) 01/21/17 10:00 APTT 31.2 Seconds (23.7-30.8) H 01/21/17 10:00 - Constitutional Appears: Non-toxic, Toxic - Head Exam Head Exam: ATRAUMATIC - Respiratory Exam Respiratory Exam: Clear to Ausculation Bilateral, NORMAL BREATHING PATTERN - Cardiovascular Exam Cardiovascular Exam: REGULAR RHYTHM, +S1, +S2 - GI/Abdominal Exam GI & Abdominal Exam: Soft, Tenderness (appropriate). absent: Distended, Firm, Guarding, Rigid, Rebound Additional comments: Incisions are clean dry intact - Neurological Exam Neurological Exam: Alert, Awake - Skin Skin Exam: Dry, Intact, Normal Color, Warm Assessment and Plan - Assessment and Plan (Free Text) Assessment: 71F s/p laparoscopic ventral/incisional hernia repair POD3 Plan: - monitor vitals/labs - encourage ambulation/Incentive spirometer/ knee high hose stocking - Clear for discharge from Surgery, outpatient follow up in 2 weeks Further recs discuss with Dr. Petros Sequeira, PGY1
--- NOTE | 2017-01-24 15:08 | DS ---
A 71-year-old female status post ventral hernia repair with incarcerated small bowel. The patient is alert and oriented x 3. PHYSICAL EXAMINATION: VITAL SIGNS: Her temperature is 98.2, her blood pressure is 165/84, pulse is 82 , oxygen sat is 95% on room air. GENERAL: Alert and oriented x 3. NECK: Supple. LUNGS: Clear. HEART: S1, S2 rhythm. ABDOMEN: Soft with positive bowel sounds. EXTREMITIES: Show evidence of edema. MICROBIOLOGICAL STUDIES: MRSA screen is negative. Blood cultures are negative. The patient is being followed by surgery postoperatively. The patient has been encouraged to get out of bed and ambulate. Physical therapy eval is in process. After discussion with the patient, she feels that she might benefit from several days of physical therapy as she is having some difficulty with mobility secondary to the pain and the surgery. She is on Apresoline 10 mg IV q. 6 for elevated systolic blood pressure, Brovana by pulmonary. She is using a CPAP machine for sleep apnea. She is on Colace 100 mg t.i.d., heparin subQ q. 12 for DVT prophylaxis, she is on a sliding insulin scale for non-insulin dependent diabetes, on morphine sulfate 2 mg q. 4 hours p.r.n. pain, Pulmicort, Tylenol. Will continue current level of care. Antibiotics will be discontinued. IV fluid will be discontinued. She has been encouraged to participate with physical therapy.Patient will go to TCU as she will greatly benefit from this. Brittany Pena MD cc: [id number] TT: 01/24/2017 15:07:42 Confirmation # [id number] Dictation # [id number] christiano HENRY
--- NOTE | 2017-01-24 16:19 | CP.PCM.PN ---
Subjective - Date & Time of Evaluation Date of Evaluation: 01/24/17 Time of Evaluation: 07:50 - Subjective Subjective: Comfortable, afebrile overnight, tolerating PO intake. Objective - Vital Signs/Intake and Output Vital Signs (last 24 hours): Temp Pulse Resp BP Pulse Ox 98.2 F 82 20 165/84 H 95 01/24/17 11:58 01/24/17 11:58 01/24/17 11:58 01/24/17 11:58 01/24/17 05:35 Intake and Output: 01/24/17 01/24/17 06:59 18:59 Intake Total 1200 780 Balance 1200 780 - Medications Medications: Current Medications Acetaminophen (Tylenol 325mg Tab) 650 mg PO Q6H PRN PRN Reason: Fever >100.4 F Arformoterol Tartrate (Brovana) 15 mcg IH [id number] [facility] Last Admin: 01/24/17 07:40 Dose: Not Given Budesonide (Pulmicort Respules) 0.5 mg IH [id number] [facility] Last Admin: 01/24/17 07:40 Dose: Not Given Docusate Sodium (Colace) 100 mg PO TID [facility] Last Admin: 01/24/17 13:15 Dose: Not Given Heparin Sodium (Porcine) (Heparin) 5,[address] PRN Reason: Protocol Last Admin: 01/24/17 09:41 Dose: 5,000 units Hydralazine HCl (Apresoline) 10 mg IVP Q6 PRN PRN Reason: Systolic Blood Pressure Last Admin: 01/24/17 00:41 Dose: 10 mg Insulin Human Lispro (Humalog Med) 0 units SC ACHS [facility] PRN Reason: Protocol Last Admin: 01/24/17 12:06 Dose: 1 units Ondansetron HCl (Zofran Inj) 4 mg IVP Q4 PRN PRN Reason: Nausea/Vomiting Tramadol HCl (Ultram) 50 mg PO TID PRN PRN Reason: Pain, moderate (4-7) - Labs Labs: 01/23/17 06:45 01/23/17 06:45 PT 11.6 Seconds (9.9-11.8) 01/21/17 10:00 INR 1.07 (0.93-1.08) 01/21/17 10:00 APTT 31.2 Seconds (23.7-30.8) H 01/21/17 10:00 - Constitutional Appears: Non-toxic, No Acute Distress - Head Exam Head Exam: NORMAL INSPECTION - ENT Exam ENT Exam: Mucous Membranes Moist - Neck Exam Neck Exam: absent: Lymphadenopathy, Meningismus - Respiratory Exam Respiratory Exam: Decreased Breath Sounds - Cardiovascular Exam Cardiovascular Exam: +S1, +S2 - GI/Abdominal Exam GI & Abdominal Exam: Soft. absent: Tenderness Assessment and Plan - Assessment and Plan (Free Text) Plan: Assessment Leukocytosis probably secondary to small bowel obstruction from incarcerated abdominal wall ventral hernia S/P repair POD #3; leukocytosis has now resolved; no evidence of sepsis noted S/P Caesarian section chronic back pain with radiculopathy HTN DM Morbid obesity with BMI 40 history of diverticulitis Plan Will monitor the patient off antibiotics since she is at risk for nosocomial infections Discussed with Dr. Pena
== END 2017-01-24 17:41 | DRG 354 ==
LOC: ED 09:33 → ERH 13:38 → OBSVTOIN 13:38 → ERH 14:29 → CCU 19:24 → 2RNO 01-22 13:24 → OBSVTOIN 01-23 09:00 → INTOOBSV 01-23 09:00
PROVIDERS: ADMIT Internal Medicine; ATTEND Internal Medicine
PROC: 0WUF4JZ Supplement Abdominal Wall with Synthetic Substitute, Percutaneous Endoscopic Approach (ICD-10-PCS; principal; 2017-01-21 16:00)
PROC: 3E0F7GC Introduction of Other Therapeutic Substance into Respiratory Tract, Via Natural or Artificial Opening (ICD-10-PCS; 2017-01-23)
DX: K43.6 Other and unspecified ventral hernia with obstruction, without gangrene (principal); Z68.41 Body mass index [BMI] 40.0-44.9, adult; E11.42 Type 2 diabetes mellitus with diabetic polyneuropathy; J44.9 Chronic obstructive pulmonary disease, unspecified; I10 Essential (primary) hypertension; G89.29 Other chronic pain; I45.6 Pre-excitation syndrome; M54.16 Radiculopathy, lumbar region; G47.33 Obstructive sleep apnea (adult) (pediatric); E66.01 Morbid (severe) obesity due to excess calories; H40.9 Unspecified glaucoma; Z79.84 Long term (current) use of oral hypoglycemic drugs; Z87.891 Personal history of nicotine dependence

== ENCOUNTER 2017-01-24 17:44 | Inpatient (IN) | payer OTHER, MEDICARE ==
[2017-01-24] MEDS ORDERED: Budesonide 0.5 mg/2 ml Inhal Susp UD IH SCH (20:00)
[2017-01-24] MEDS ORDERED: Arformoterol 15 mcg/2 ml Inh Sol IH SCH ×2 (20:00)
[2017-01-24] MEDS ORDERED: Pneumococcal 23-Valent Vaccine IM ONE (21:14)
[2017-01-24] MEDS ORDERED: Influenza Vaccine 45 MCG/0.5 ml IM ONE (21:14)
[2017-01-24 21:15] VITALS: BMI 40.6
[2017-01-24] MEDS ORDERED: Albuterol 0.083% Inhal Sol (2.5 mg/3 mL) UD IH PRN (21:24)
[2017-01-25] MEDS: Insulin Lispro (humaLOG) MEDIUM Coverage SC SCH ×5 (00:26→22:20)
--- NOTE | 2017-01-25 03:06 | CON ---
DATE: 01/24/2017 REFERRING PHYSICIAN: Dr. Brittany Pena. REASON FOR CONSULT: Obstructive sleep apnea syndrome, obesity, may have chronic lung disease. HISTORY OF PRESENT ILLNESS: This is a 71-year-old female with past medical history significant for d iabetes, hypertension, obstructive sleep apnea syndrome with chronic lung disease, peripheral neuropa thy, history of Byubq-Sscvkepxj-Ddabp syndrome, originally admitted to acute side of the hospital wit h incarcerated hernia and underwent laparotomy repair surgery, postop done well. She brought her own CPAP from home to use it. Nebulizer was started, but she does not like . Presently admitted t [facility] for continued care and comprehensive rehabilitation. She does get short of breath with exerti on. No hemoptysis, no hematemesis, no hematuria, no diarrhea reported. PAST MEDICAL HISTORY: Hypertension, diabetes, chronic lung disease, obstructive sleep apnea syndrome , history of Ocpkp-Gbohzmeus-Kkibl syndrome, peripheral neuropathy, obesity. ALLERGIES: NORVASC. SOCIAL HISTORY: Stopped smoking many years ago. Denied any alcohol use. FAMILY HISTORY: No significant cardiopulmonary disease reported. MEDICATIONS: She is on hydralazine 10 mg every 6 hours p.r.n., Brovana inhaled twice a day, Colace 1 00 mg 3 times a day, heparin 5000 units subQ every 12 hours, insulin coverage, Pulmicort inhaled twic e a day, Tylenol p.r.n., Ultram 50 mg 3 times a day p.r.n. REVIEW OF SYSTEMS: No headache, no rhinitis, no cough. Got short of breath with exertion. No chest pain, no nausea, no vomiting, no diarrhea. Does have incision some mild discomfort. No leg pain or leg swelling. PHYSICAL EXAMINATION: GENERAL: Sitting up in a chair in no acute distress. VITAL SIGNS: Temp is 98, heart is 82, respiratory rate is 20, blood pressure 165/84, pulse ox 95% on room air. HEENT: Moist mucous membranes. Crowded airway. Mallampati score is 4. NECK: Supple. No JVD. LUNGS: Has a fair airflow with few rhonchi. HEART: S1 and S2. ABDOMEN: Has a dressing, mild tenderness. EXTREMITIES: There is not much edema. NEUROLOGIC: Awake, alert, follows simple commands. LABORATORY DATA: Shows hemoglobin 12.8, hematocrit 38.9, WBC 8.2, platelet is 340. Blood sugar of 1 56. Sodium 137, potassium 4.1, chloride 104, bicarbonate 26, BUN 15, creatinine 0.7, glucose 199, ca lcium 8.4, magnesium 2.1. Microbiology: Blood cultures have been negative. MRSA not detected. IMPRESSION AND PLAN: Status post hernia repair, obstructive sleep apnea syndrome, obstructive lung d isease, hypertension, diabetes, obesity. I agree with Dr. Pena with the present management. We wi ll discontinue Pulmicort and Brovana, add Advair 250/50 one puff twice a day. We will give Ventolin HFA every 6 hours p.r.n. for shortness of breath. May continue patient with her own CPAP while sleep ing. Keep head elevated at 45 degrees. Avoid sedation. Gastric prophylaxis, deep venous thrombosis prophylaxis. Fall precautions. Case discussed with daughter at bedside. All the questions answere d. Wil Portillo MD cc: [id number] TT: 01/25/2017 03:06:38 Confirmation # [id number] Dictation # [id number] she
[2017-01-25] MEDS: Pantoprazole 40 mg EC Tab PO SCH (06:43)
[2017-01-25 10:19] VITALS: TEMP 98.5
--- NOTE | 2017-01-25 10:32 | HP ---
HISTORY OF PRESENT ILLNESS: A 71-year-old female status post abdominal surgery for ventral abdominal hernia with incarceration of small bowel. The patient has a past medical history of sleep apnea, non-insulin dependent diabetes, hypertension, peripheral neuropathy, hyperlipidemia, remote history of 2 C-sections, foot surgery. ALLERGIES: NORVASC. SOCIAL HISTORY: She is a nonsmoker, nondrinker, nondrug user. REVIEW OF SYSTEMS: Ten systems are reviewed. Pertinent findings: The patient's wound site is clean and dry. She does state that there is some discomfort with ambulation on the left side between the surgery and her neuropathy. ACTIVE MEDICATIONS: Consist of albuterol 2.5 mg q. 6 hours, Asmanex Twisthaler 220 mcg 2 puffs in th e evening, Colace 100 mg t.i.d., subQ heparin 5000 units subQ q. 12, Humalog sliding scale, Protonix 40 mg daily, Tylenol 325 tabs 2 q. 6 hours p.r.n. for pain, tramadol 50 mg t.i.d. p.r.n. for moderate pain, and Zestril 20 mg daily. PHYSICAL EXAMINATION: VITAL SIGNS: Temp is 98.8, blood pressure is 133/68, pulse is 81, respiratory rate is 18. [facility] that she slept well last night. NECK: Supple. LUNGS: Clear. HEART: An S1, S2 rhythm. ABDOMEN: Soft with positive bowel sounds. The surgical site is dry. EXTREMITIES: Show no evidence of edema. NEUROLOGIC: She is alert and oriented x 3. IMPRESSION: The patient will be followed by Dr. Portillo, laboratory machinist, for her sleep apnea and follo w up with Dr. Morrell, her surgeon. She has been encouraged to get out, participate and walk and work with physical therapy and improve her tolerance postoperatively. We will monitor her vital sig ns and blood pressure. Follow the patient's blood sugar. This has all been discussed with the [facility] nt and the staff. Brittany Pena MD cc: [id number] TT: 01/25/2017 10:31:49 il
--- NOTE | 2017-01-25 14:10 | CP.PCM.CON ---
History of Present Illness - History of Present Illness History of Present Illness: Surgery: Dr. Morrell CC: S/p laparoscopic repair of incarcerated ventral hernia HPI: 71F presented to [facility] on 01/21 abdominal pain and ventral hernia. Patient states she has had this hernia since 2006 and it has been reducible until Monday. She was admitted to the hospital and underwent a laparoscopic ventral hernia repair. Pt did well post-operatively and has been cleared for d/c from surgical standpoint. She has been admitted to TCU. She is doing well. Pain is controlled. Tolerating diet. No N/V. No F/C. Ambulating limitidly. + Flatus/BM. PMD: Dr. Pena PMH: HTN, DM, Lumbar radiculopathy, Glaucoma PSH: Laparoscopic ventral hernia repair, Tonsillectomy, D&C, Plantar fasciatomy , removal of vocal cord polyps, C-sec*2 (one midline incision, one transverse incision) Social: denies tobacco, rare alcohol intake, denies illicit drugs Allergies: [facility] Meds: MAR reviewed Review of Systems - Review of Systems All systems: reviewed and no additional remarkable complaints except (HPI) Past Patient History - Past Social History Smoking Status: Former Smoker - CARDIAC Hx Hypercholesterolemia: Yes Hx Hypertension: Yes - PULMONARY Hx Chronic Obstructive Pulmonary Disease (COPD): Yes - NEUROLOGICAL Hx Neurological Disorder: No - HEENT Hx HEENT Problems: No Other/Comment: USES READING GLASSES - RENAL Hx Chronic Kidney Disease: No - ENDOCRINE/METABOLIC Hx Diabetes Mellitus Type 2: Yes - HEMATOLOGICAL/ONCOLOGICAL Hx Blood Disorders: No - INTEGUMENTARY Hx Dermatological Problems: No - MUSCULOSKELETAL/RHEUMATOLOGICAL Hx Falls: No - GASTROINTESTINAL Hx Gastrointestinal Disorders: Yes (INCARCERATED VENTRAL HERNIA REPAIR,SBO, DIVERTICULITIS) - GENITOURINARY/GYNECOLOGICAL Hx Genitourinary Disorders: No Hx Reproductive Disorders: No - PSYCHIATRIC Hx Psychophysiologic Disorder: No Hx Substance Use: No - SURGICAL HISTORY Hx Surgeries: Yes Other/Comment: c section. - ANESTHESIA Hx Anesthesia Reactions: No Hx Malignant Hyperthermia: No Meds Allergies/Adverse Reactions: Allergies Allergy/AdvReac Type Severity Reaction Status Date / Time amlodipine besylate AdvReac ANGIOEDEMA Verified 01/24/17 20:13 [From [facility]] - Medications Medications: Current Medications Acetaminophen (Tylenol 325mg Tab) 650 mg PO Q6H PRN; Protocol PRN Reason: Fever >100.4 F Last Admin: 01/25/17 12:49 Dose: 650 mg Albuterol Sulfate (Albuterol 0.083% Inhal Jessica (2.5 Mg/3 Ml) Ud) 2.5 mg IH [id number] PRN PRN Reason: Shortness of Breath Docusate Sodium (Colace) [address] PRN Reason: Protocol Last Admin: 01/25/17 10:21 Dose: 100 mg Heparin Sodium (Porcine) (Heparin) 5,[address] PRN Reason: Protocol Last Admin: 01/25/17 10:21 Dose: 5,000 units Insulin Human Lispro (Humalog Med) [address] PRN Reason: Protocol Last Admin: 01/25/17 12:00 Dose: 1 units Lisinopril (Zestril) 20 mg PO DAILY COUNTS INCLUDE 234 BEDS AT THE [facility] PRN Reason: Protocol Mometasone Furoate (Asmanex Twisthaler 220 Mcg) 2 puff IH QPM COUNTS INCLUDE 234 BEDS AT THE [facility] Pantoprazole Sodium (Protonix Ec Tab) 40 mg PO 0630 COUNTS INCLUDE 234 BEDS AT THE [facility] Last Admin: 01/25/17 06:43 Dose: 40 mg Tramadol HCl (Ultram) 50 mg PO TID PRN; Protocol PRN Reason: Pain, moderate (4-7) Physical Exam - Constitutional Appears: Non-toxic, No Acute Distress - Head Exam Head Exam: ATRAUMATIC, NORMOCEPHALIC - Eye Exam Eye Exam: EOMI. absent: Scleral icterus - ENT Exam ENT Exam: Mucous Membranes Moist, Normal External Ear Exam - Neck Exam Neck exam: Positive for: Full Rom - Respiratory Exam Respiratory Exam: NORMAL BREATHING PATTERN. absent: Accessory Muscle Use, Respiratory Distress - GI/Abdominal Exam GI & Abdominal Exam: Soft. absent: Distended, Firm, Guarding, Hernia, Rebound, Rigid, Tenderness - Extremities Exam Extremities exam: Negative for: calf tenderness, pedal edema - Neurological Exam Neurological exam: Alert, Oriented x3 - Psychiatric Exam Psychiatric exam: Normal Affect, Normal Mood - Skin Skin Exam: Dry, Normal Color, Warm Results - Vital Signs Recent Vital Signs: Last Vital Signs Temp 98.5 F 01/25/17 10:00 Pulse 62 01/25/17 10:21 Resp 18 01/25/17 10:00 BP 151/82 H 01/25/17 10:21 Pulse Ox 98 01/25/17 10:00 Assessment & Plan - Assessment and Plan (Free Text) Assessment: 71F w. ventral hernia, s/p laparoscopic repair, POD#4 -clear for d/c from surgical standpoint -encourage ambulation, IS use -DVT prophylaxis -d/w attending [employer] PGY2
--- NOTE | 2017-01-25 14:19 | PN ---
DATE: 01/25/2017 REFERRING PHYSICIAN: Dr. Brittany Pena. SUBJECTIVE: She is sitting side of the bed, had a good night sleep. Tolerated CPAP well and did wel l in therapy. No headache, no rhinitis, no cough, no sputum production, no nausea, mild incision sit e discomfort. No leg pain or leg swelling. OBJECTIVE: GENERAL: No acute distress. VITAL SIGNS: Temperature is 98, heart rate is 69, respiratory rate is 18, blood pressure 151/82, pul se ox 98% on room air. HEENT: Moist mucous membrane. Crowded airway. Mallampati score is 4. NECK: Supple. No JVD. LUNGS: Has a fair airflow with few rhonchi. HEART: S1, S2. ABDOMEN: Soft, mild tenderness. EXTREMITIES: There is not much edema. NEUROLOGIC: Awake, alert, follows simple commands. MEDICATIONS: She is on albuterol-Atrovent nebulizer q. 6 hours p.r.n., Asmanex is 220 two puffs waqas y, Colace 100 mg 3 times a day, heparin 5000 units subQ q. 12 hours, insulin coverage, Protonix 40 mg daily, Tylenol p.r.n., Ultram 50 mg 3 times a day, Zestril 20 mg daily. LABORATORY DATA: Reviewed. No new lab is available since yesterday. IMPRESSION AND PLAN: Status post hernia repair, obstructive sleep apnea syndrome, obstructive lung d isease, hypertension, diabetes, obesity, had a small-bowel obstruction. Presently doing well, tolera chino bronchodilators well. Hospital does not carry Advair and Asmanex was started with rescue nebuliz ed therapy. Tolerated CPAP well. Gastric prophylaxis, deep venous thrombosis prophylaxis. Continue therapy. Thank you and will follow with you. Wil Portillo MD cc: [id number] TT: 01/25/2017 14:18:45 Confirmation # [id number] Dictation # [id number] an
[2017-01-26] MEDS: Pantoprazole 40 mg EC Tab PO SCH (08:06)
[2017-01-26] MEDS: Insulin Lispro (humaLOG) MEDIUM Coverage SC SCH ×4 (08:24→22:12)
[2017-01-26 11:07] VITALS: BP 147/79; PULSE 85
[2017-01-26 12:49] VITALS: RESP 20; O2SAT 96
--- NOTE | 2017-01-26 15:25 | PN ---
DATE: 01/26/2017 A 71-year-old female status post ventral abdominal hernia with small bowel compromise surgery on [facility] unit receiving occupational and physical therapy. Nursing staff relates that there wer e no particular problems during the night or day yesterday. PHYSICAL EXAMINATION: VITAL SIGNS: Her temp is 98.5. Her pulse is 85. Her blood pressure is 147/79. Her oxygen saturati on 96%. GENERAL: The patient is alert and oriented x 3. NECK: Supple. LUNGS: Clear. HEART: An S1, S2 rhythm. ABDOMEN: Soft, positive bowel sounds. Surgical site is dry. NEUROLOGIC: She is alert and oriented x 3. There is no evidence of edema. PLAN: We will continue current level of care and she will be followed up with surgery. She is also being followed by Dr. Portillo. She has sleep apnea. She is receiving respiratory treatments for this and uses a sleep apnea machine at night. Brittany Pena MD cc: [id number] TT: 01/26/2017 15:24:39 Confirmation # [id number] Dictation # [id number] ta
[2017-01-26] MEDS: Mometasone 220 mcg/puff-14 puff Inh IH SCH (17:58)
--- NOTE | 2017-01-26 22:46 | PN ---
DATE: 01/26/2017 REFERRING PHYSICIAN: Dr. Brittany Pena. SUBJECTIVE: She is sitting side of the bed. Night was unremarkable, tolerated CPAP well. Got short of breath with exertion. No nausea, no vomiting, no diarrhea. Mild abdominal discomfort at the inc ision site. OBJECTIVE: GENERAL: In no acute distress. VITAL SIGNS: Temp is 98, heart rate is 85, respiratory rate is 20, blood pressure 147/79, pulse ox 9 6% on room air. HEENT: Moist mucous membranes. Crowded airway. Mallampati score is 4. NECK: Supple. No JVD. LUNGS: Has a fair airflow with a few rhonchi. HEART: S1, S2. ABDOMEN: Soft. Mild tenderness at the incision site. EXTREMITIES: There is lymphedema. NEUROLOGIC: Awake, alert, follows simple commands. MEDICATIONS: She is on albuterol-Atrovent nebulizer q.6 hours p.r.n., Asmanex twist inhaler 220 two puffs daily, Colace 100 mg 3 times a day, metformin 500 mg daily, heparin 5000 subQ q.12 hours, insul in coverage, Januvia 50 mg daily, Protonix 40 mg daily, Tylenol p.r.n. basis, Ultram 50 mg 3 times a day p.r.n., Zestril 20 mg daily. LABORATORY DATA: Shows blood sugar this morning 154. IMPRESSION AND PLAN: Status post hernia repair, obstructive sleep apnea syndrome, obstructive lung d isease, hypertension, diabetes, obesity. Pulmonary point of view, doing okay. I spoke to the [facility] staff and requested to provide her Asmanex inhaler, p.r.n. rescue inhaler and CPAP while sleeping. Keep head elevated at 45 degrees. Avoid sedation. Fall precaution. Thank you and will follow with you. Wil Portillo MD cc: [id number] TT: 01/26/2017 22:46:15 Confirmation # [id number] Dictation # [id number] dn
[2017-01-27] MEDS: Pantoprazole 40 mg EC Tab PO SCH (05:52)
[2017-01-27] MEDS: Insulin Lispro (humaLOG) MEDIUM Coverage SC SCH ×2 (06:53→12:03)
[2017-01-27] MEDS: Mometasone 220 mcg/puff-14 puff Inh IH SCH (07:50)
[2017-01-27] MEDS ORDERED: Non Formulary Medication (Sitagliptin Phos/Metformin Hcl [Janumet 50-500 Mg Tablet] 1 TAB) PO SCH (10:00)
--- NOTE | 2017-01-27 17:48 | DS ---
A 71-year-old female status post incarcerated ventral hernia with small-bowel obstruction. Surgery o n the transitional care unit. The patient will be returning home with home care services. VITAL SIGNS: Her temp is 98.5, her blood pressure is 147/79, oxygen saturation is 98% on room air, p ulse is 62. DISCHARGE MEDICATIONS: The patient will be going home to continue on her home, meds with Janumet 50/ 500 daily, multivitamin, krill oil, Ecotrin, Zestril 20 mg daily, and Pepcid 40 mg daily. The patient has a history of sleep apnea. Was offered Azmacort and albuterol inhalers, but she decli jennifer. She will be following up with pulmonary for her sleep apnea history and she uses a sleep apnea apparatus at home. She will be followed up as an outpatient with surgery and myself. Brittany Pena MD cc: [id number] TT: 01/27/2017 17:48:15 sn
== END 2017-01-27 13:27 | disposition home or self-care (01) | DRG 394 ==
LOC: TRCU 17:44
PROVIDERS: ADMIT Internal Medicine; ATTEND Internal Medicine
PROC: F07Z9ZZ Gait Training/Functional Ambulation Treatment (ICD-10-PCS; principal; 2017-01-25)
PROC: F08Z4ZZ Home Management Treatment (ICD-10-PCS; 2017-01-26)
PROC: 3E0F7GC Introduction of Other Therapeutic Substance into Respiratory Tract, Via Natural or Artificial Opening (ICD-10-PCS; 2017-01-26)
DX: K43.6 Other and unspecified ventral hernia with obstruction, without gangrene (principal); Z68.41 Body mass index [BMI] 40.0-44.9, adult; E11.42 Type 2 diabetes mellitus with diabetic polyneuropathy; J44.9 Chronic obstructive pulmonary disease, unspecified; I10 Essential (primary) hypertension; G47.33 Obstructive sleep apnea (adult) (pediatric); E78.5 Hyperlipidemia, unspecified; I45.6 Pre-excitation syndrome; H40.9 Unspecified glaucoma; M54.16 Radiculopathy, lumbar region; E66.9 Obesity, unspecified; Z79.84 Long term (current) use of oral hypoglycemic drugs; Z87.891 Personal history of nicotine dependence